=== PATIENT | female | born 1950 | race Caucasian/White ===

== ENCOUNTER → 2025-01-23 | Outpatient (CLI) | payer MEDICARE, OTHER, SELFPAY ==
--- NOTE | 2025-01-23 16:59 | DI.MRI.S_ITS ---
PROCEDURE: MR KNEE LT WO CON INDICATIONS: L KNEE PAIN TECHNIQUE: Noncontrast sagittal PD fast spin echo and T2 fast spin echo with fat saturation, sagittal 3-D FLASH with fat saturation; coronal T1 spin echo and PD fast spin echo with fat saturation, and axial PD fast spin echo with fat saturation through the knee. COMPARISON: None. FINDINGS: Image quality: Excellent. Bones: The bone marrow signal is normal. There is no acute fracture or dislocation. Joints: There is a small knee joint effusion. There is mild knee osteoarthritis. Susceptibility artifact is present at the anterior nonweightbearing medial femoral condyle (9/17). Humphrey's cyst: None. Menisci: There is a complex (predominantly longitudinal horizontal component) tear of the body and posterior horn of the medial meniscus along with a full-thickness radial tear at the posterior horn-posterior root attachment (14/22). There is 4 mm of medial meniscal body extrusion into the medial gutter (14/18). The lateral meniscus and its posterior root attachment are normal. Cruciate ligaments: There is mild intermediate signal of the anterior cruciate ligament, although the fiber orientation is preserved. The posterior cruciate ligament is normal. Collateral ligaments: There is mild thickening and intermediate signal of the medial collateral ligament complex with periligamentous edema (14/17). The lateral collateral ligament complex is normal. Popliteus Muscle/Tendon: The popliteus muscle and tendon are normal. Extensor mechanism: The quadriceps tendon is normal. The patellar tendon is normal. The medial and lateral patellar retinacular attachments are normal. Articular cartilage: Multifocal areas of partial thickness chondral loss and deep chondral fissuring are present at the medial and lateral compartments (14/20). Partial-thickness chondral loss is present at the nonweightbearing lateral femoral condyle (11/22). Partial-thickness chondral loss and partial-thickness fissuring is present throughout the patellofemoral compartment. Other: Mild prepatellar and infrapatellar subcutaneous edema. IMPRESSION: 1. Complex tear of the medial meniscus with a full-thickness radial tear at the posterior horn-posterior root attachment, resulting in 4 mm of meniscal body extrusion into the medial gutter. 2. Likely sprain versus prior partial tear of the anterior cruciate ligament. 3. Mild MCL sprain. 4. Mild knee osteoarthritis with associated articular cartilage defects and small joint effusion. 5. Susceptibility artifact at the anterior nonweightbearing medial femoral condyle, which may represent foreign metallic debris from prior injury or surgical intervention. Dictated by: Moy Larose M.D. on 01/24/2025 at 8:47 Approved by: Moy Larose M.D. on 01/24/2025 at 9:30
== END ==
PROVIDERS: Family Provider Orthopaedic Surgery; PCP Family Medicine; Referring Provider Family Medicine; Visit Provider Family Medicine
DX: S83.232A Complex tear of medial meniscus, current injury, left knee, initial encounter (principal); S83.412A Sprain of medial collateral ligament of left knee, initial encounter; M25.562 Pain in left knee; M23.8X2 Other internal derangements of left knee; M17.12 Unilateral primary osteoarthritis, left knee; M25.462 Effusion, left knee
CPT/HCPCS: 73721

== ENCOUNTER → 2025-04-01 13:14 | Outpatient (CLI) | payer MEDICARE, OTHER, SELFPAY ==
--- NOTE | 2025-04-01 13:19 | DI.MRI.S_ITS ---
PROCEDURE: MR KNEE RT WO CON INDICATIONS: RIGHT KNEE PAIN/ ? MENISCUS TEAR TECHNIQUE: Noncontrast sagittal PD fast spin echo and T2 fast spin echo with fat saturation, sagittal 3-D FLASH with fat saturation; coronal T1 spin echo and PD fast spin echo with fat saturation, and axial PD fast spin echo with fat saturation through the knee. COMPARISON: [facility], MR, MR KNEE LT WO CON, 01/23/2025, 17:14. FINDINGS: Image quality: Excellent. Menisci: In the medial meniscus, there is an oblique tear at the anterior root, with a small parameniscal cyst (11:18). No extrusion of the medial meniscus body. The lateral meniscus is unremarkable. Cruciate ligaments: The anterior and posterior cruciate ligaments appear intact. Medial structures: The medial collateral ligament appears intact. The posterior oblique ligament, semimembranosus tendon insertions, oblique popliteal ligament, and meniscocapsular junction appear intact. Visualized portions of the pes anserinus tendons appear normal. No abnormal bursal fluid. Lateral structures: The lateral collateral ligament, long and short heads of the biceps femoris tendon appear intact. The popliteus tendon appears normal; the popliteofibular ligament appears intact. The posterosuperior and anteroinferior popliteomeniscal fascicles appear intact. The arcuate and fabellofibular ligaments appear intact, on either side of the lateral inferior geniculate artery. Iliotibial band appears normal. Anterior structures: The distal quadriceps tendon is unremarkable. Mild tendinosis of the proximal patellar tendon. No Hoffa's fat pad edema. Alignment of the patellofemoral compartment is anatomic. The medial and the lateral patellofemoral ligaments are intact. Bones and cartilage: In the patellofemoral compartment, there is large area of full-thickness chondral loss in the medial compartment predominant tricompartment osteoarthritis trochlea, with mild subchondral marrow edema, and mild osteophytosis. Mild chondrosis of the medial compartment with multi focal mild chondral irregularity i and mild marrow edema n the medial femoral condyle. Cartilage of the lateral compartment is grossly well maintained. No acute fracture. Joint space: No knee effusion. Trace popliteal cyst. Popliteal vasculature is unremarkable. No intra-articular body. Diffuse subcutaneous edema of the anterior knee. A cluster of ganglion cysts measuring 1.0 cm anterior to the medial tibial plateau. IMPRESSION: 1. Oblique tear of the anterior root of the medial meniscus with a small parameniscal cyst. 2. Moderate, patellofemoral compartment predominant chondrosis. Dictated by: Chelsie Jackson M.D. on 04/03/2025 at 10:12 Approved by: Chelsie Jackson M.D. on 04/03/2025 at 10:22
== END ==
PROVIDERS: Family Provider Orthopaedic Surgery; PCP Family Medicine; Referring Provider Physician Assistant; Visit Provider Physician Assistant
DX: S83.241A Other tear of medial meniscus, current injury, right knee, initial encounter (principal); M17.11 Unilateral primary osteoarthritis, right knee; M76.31 Iliotibial band syndrome, right leg; M25.561 Pain in right knee; M22.41 Chondromalacia patellae, right knee
CPT/HCPCS: 73721

== ENCOUNTER → 2025-09-14 15:13 | Outpatient (CLI) | payer MEDICARE, OTHER, SELFPAY ==
--- NOTE | 2025-09-14 15:15 | DI.MRI.S_ITS ---
PROCEDURE: MR ANKLE LT WO CON INDICATIONS: ANKLE PAIN TECHNIQUE: Noncontrast sagittal T1 spin echo and T2 fast spin echo with fat saturation, axial proton density fast spin echo and T2 fast spin echo with fat saturation, coronal T1 spin echo and T2 fast spin echo with fat saturation through the ankle/hindfoot. COMPARISON: None. FINDINGS: Image quality: Excellent. Bones and joints: There is no marrow edema. No fracture or dislocation. No osteochondral injuries of talar dome. Small tibiotalar joint effusion, no loose bodies. Mild midfoot and hindfoot joint osteoarthritis. Well-defined plantar calcaneal enthesophyte is seen. Medial structures: The posterior tibialis, flexor digitorum longus, and flexor hallucis longus tendons are intact. The posterior tibial neurovascular bundle appears normal within the tarsal tunnel, without extrinsic mass effect. The deltoid ligament and spring ligament are intact. Lateral structures: The anterior talofibular ligament is thickened with intrasubstance T2 hyperintense signal. The calcaneofibular, and posterior talofibular ligaments appear intact. More superiorly, the anterior and posterior tibiofibular ligaments appear thickened. The The tibiofibular syndesmosis is normal in width at 2 mm or less. The peroneus longus and brevis tendons demonstrate normal location and morphology. The sinus tarsi demonstrates normal fatty signal, without edema, fibrosis, or cyst formation. Anterior structures: The tibialis anterior, extensor hallucis longus, and extensor digitorum longus tendons appear intact. The dorsal talonavicular ligament appears intact. Posterior and plantar structures: Achilles tendon is intact. Medial and lateral bands of the plantar fascia are of normal thickness. No abductor digiti quinti muscle atrophy to suggest Mcguire neuropathy. IMPRESSION: 1. Mild midfoot and hindfoot joint osteoarthritis. No fracture or dislocation. No osteochondral injuries of talar dome. Well-defined plantar calcaneal enthesophyte. Small joint effusion, no loose bodies. 2. Sprain/low-grade intrasubstance partial-thickness tear involving anterior talofibular ligament. Low-grade sprain involving anterior and posterior tibial fibular ligaments. No full-thickness ligament rupture. 3. Ankle tendons are intact. Dictated by: Roger Torres M.D. on 09/15/2025 at 12:02 Approved by: Roger Torres M.D. on 09/15/2025 at 12:14
== END ==
PROVIDERS: Family Provider Orthopaedic Surgery; PCP Family Medicine; Referring Provider Podiatrist; Visit Provider Podiatrist
DX: S93.432A Sprain of tibiofibular ligament of left ankle, initial encounter (principal); S93.492A Sprain of other ligament of left ankle, initial encounter; M19.072 Primary osteoarthritis, left ankle and foot; M77.52 Other enthesopathy of left foot and ankle; M79.672 Pain in left foot; M25.572 Pain in left ankle and joints of left foot; M77.32 Calcaneal spur, left foot
CPT/HCPCS: 73721